=== PATIENT | female | born 1975 | race Two or more races ===

== ENCOUNTER 2016-07-06 11:01 | Emergency (ER) | payer SELFPAY ==
--- NOTE | 2016-07-06 11:21 | ER Document Report ---
ED Medical Screen (RME) - General Stated Complaint: STOMACH CRAMPING, CHEST PAIN Notes: 41 yo female c/o lower abdominal cramping since this morning. unsure if . LMP in May pt not taking BP meds becuase they make her nauseated. denies vaginal discharge or bleeding. TRAVEL OUTSIDE OF THE [place] IN LAST 30 DAYS: No - Related Data Allergies/Adverse Reactions: amoxicillin [Amoxicillin] Allergy (Verified 07/06/16 11:18) Tachycardia Past Medical History - Social History Family history: Reviewed & Not Pertinent - Past Medical History Cardiac Medical History: Reports: Hx Hypercholesterolemia Pulmonary Medical History: Reports: Hx Asthma, Hx Bronchitis, Hx Pneumonia Endocrine Medical History: Reports: Hx Diabetes Mellitus Type 2 Musculoskeltal Medical History: Reports Hx Musculoskeletal Trauma Past Surgical History: Reports: Hx Gynecologic Surgery - D&C, Hx Tubal Ligation - Immunizations Immunizations up to date: Yes Hx Diphtheria, Pertussis, Tetanus Vaccination: Yes Physical Exam - Vital signs Vitals: Temp Pulse Resp BP Pulse Ox 98.0 F 83 20 130/70 H 98 07/06/16 11:15 07/06/16 11:15 07/06/16 11:15 07/06/16 11:15 07/06/16 11:15 Course - Vital Signs Vital signs: Temp Pulse Resp BP Pulse Ox 98.0 F 83 20 130/70 H 98 07/06/16 11:15 07/06/16 11:15 07/06/16 11:15 07/06/16 11:15 07/06/16 11:15
[2016-07-06 11:50] LABS: ABSOLUTE EOSINOPHILS # (AUTO) 0.2 10^3/uL (0.0-0.6); ABSOLUTE LYMPHOCYTES (AUTO) 1.2 10^3/uL (0.5-4.7); ABSOLUTE MONOCYTES (AUTO) 0.4 10^3/uL (0.1-1.4); ABSOLUTE NEUT (AUTO) 5.3 10^3/uL (1.7-8.2); BASOPHILS % (AUTO) 0.3 % (0-2); EOSINOPHILS % (AUTO) 2.6 % (0-6); HEMATOCRIT 35.8 % (36.0-47.0); HGB HCT DIFFERENCE 0.2; LYMPHOCYTES % (AUTO) 17.3 % (13-45); MEAN CORPUSCULAR HGB CONC 33.5 g/dL (32.0-36.0); MEAN CORPUSCULAR VOLUME 86 fl (80-97); MONOCYTES % (AUTO) 5.8 % (3-13); RED BLOOD COUNT 4.15 10^6/uL (3.72-5.28); RED CELL DISTRIBUTION WIDTH 14.2 % (11.5-14.0); WHITE BLOOD COUNT 7.2 10^3/uL (4.0-10.5)
[2016-07-06 12:18] LABS: ALANINE AMINOTRANSFERASE 18 U/L (9-52); ALBUMIN 3.9 g/dL (3.5-5.0); ALKALINE PHOSPHATASE 85 U/L (38-126); ANION GAP 9 (5-19); ASPARTATE AMINO TRANSFERASE 24 U/L (14-36); BILIRUBIN,TOTAL 0.6 mg/dL (0.2-1.3); BLOOD UREA NITROGEN 12 mg/dL (7-20); CALCIUM 9.7 mg/dL (8.4-10.2); CARBON DIOXIDE 25 mmol/L (22-30); CHLORIDE 106 mmol/L (98-107); CREATINE KINASE 48 U/L (30-135); CREATININE RESULT 0.61 mg/dL (0.52-1.25); GLUCOSE 140 mg/dL (75-110); SODIUM 140.3 mmol/L (137-145); TOTAL PROTEIN 6.8 g/dL (6.3-8.2)
[2016-07-06 12:30] LABS: CREATINE KINASE MB < 0.22 ng/mL (<4.55); TROPONIN I < 0.012 ng/mL
--- NOTE | 2016-07-06 12:40 | ER Document Report ---
ED GI/ - General Time seen by provider: 13:12 Mode of Arrival: Ambulatory Information source: Patient TRAVEL OUTSIDE OF THE [place] IN LAST 30 DAYS: No - HPI Patient complains to provider of: Abdominal pain. No: Vaginal bleeding Onset: Other - see HPI note Vaginal bleeding (Compared to normal period): None Associated symptoms: Nausea. denies: Diarrhea <STEVEN NOE - Last Filed: 07/06/16 13:34> <MARY RICE - Last Filed: 07/06/16 16:05> - General Chief Complaint: Abdominal Pain Stated Complaint: STOMACH CRAMPING, CHEST PAIN Notes: Patient is a 41 year old female presenting to the emergency department for abdominal pain and nausea. Patient states that these symptoms started around 04: 00 this morning. Patient states that her abdominal pain is in her lower abdomen. Patient denies any vaginal discharge, vaginal bleeding, or diarrhea. Patient has a history of type 2 diabetes mellitus, hypertension, hypercholesterolemia, and sinus arrhythmia. Patient states she stopped taking her metoprolol and her cholesterol medication because they were making her nauseous. Patient states she is unsure if she is but she had a tubal ligation in 2005. Patient states she sees Dr. Rubina zuñiga per year and her PCP is with [facility]. (STEVEN NOE) - Related Data Allergies/Adverse Reactions: amoxicillin [Amoxicillin] Allergy (Verified 07/06/16 11:18) Tachycardia Past Medical History - General Information source: Patient - Social History Smoking Status: Never Smoker Cigarette use (# per day): No Chew tobacco use (# tins/day): No Frequency of alcohol use: None Drug Abuse: None Family History: Arthritis, CAD, CVA, DM, Hyperlipidemia, Hypertension, Malignancy Patient has suicidal ideation: No Patient has homicidal ideation: No - Past Medical History Cardiac Medical History: Reports: Hx Hypercholesterolemia Pulmonary Medical History: Reports: Hx Asthma, Hx Bronchitis, Hx Pneumonia Endocrine Medical History: Reports: Hx Diabetes Mellitus Type 2 Musculoskeltal Medical History: Reports Hx Musculoskeletal Trauma Past Surgical History: Reports: Hx Gynecologic Surgery - D&C, Hx Tubal Ligation - 2005 - Immunizations Immunizations up to date: Yes Hx Diphtheria, Pertussis, Tetanus Vaccination: Yes <STEVEN NOE - Last Filed: 07/06/16 13:34> Review of Systems - Review of Systems Constitutional: No symptoms reported EENT: No symptoms reported Cardiovascular: No symptoms reported Respiratory: No symptoms reported Gastrointestinal: See HPI, Abdominal pain, Nausea. denies: Diarrhea, Vomiting Genitourinary: No symptoms reported Female Genitourinary: No symptoms reported Musculoskeletal: No symptoms reported Skin: No symptoms reported Hematologic/Lymphatic: No symptoms reported Neurological/Psychological: No symptoms reported -: Yes All other systems reviewed and negative <STEVEN NOE - Last Filed: 07/06/16 13:34> Physical Exam - Vital signs Interpretation: Normal - General General appearance: Appears well, Alert In distress: Mild - HEENT Head: Normocephalic, Atraumatic Eyes: Normal Pupils: PERRL Mucous membranes: Moist - Respiratory Respiratory status: No respiratory distress Chest status: Nontender Breath sounds: Normal Chest palpation: Normal - Cardiovascular Rhythm: Regular Heart sounds: Normal auscultation Murmur: No - Abdominal Inspection: Morbidly Obese Distension: No distension Bowel sounds: Normal Tenderness: Tender - Diffuse abdominal tenderness throughout Organomegaly: No organomegaly - Back Back: Normal, Nontender - Extremities General upper extremity: Normal inspection, Normal ROM, Normal strength General lower extremity: Normal inspection, Normal ROM, Normal strength - Neurological Neuro grossly intact: Yes Cognition: Normal Orientation: AAOx4 Patrick Coma Scale Eye Opening: Spontaneous Patrick Coma Scale Verbal: Oriented Patrick Coma Scale Motor: Obeys Commands [place] Coma Scale Total: 15 Speech: Normal - Psychological Associated symptoms: Normal affect, Normal mood - Skin Skin Temperature: Warm Skin Moisture: Dry <STEVEN NOE - Last Filed: 07/06/16 13:34> <MARY RICE - Last Filed: 07/06/16 16:05> - Vital signs Vitals: Temp Pulse Resp BP Pulse Ox 98.0 F 83 20 130/70 H 98 07/06/16 11:15 07/06/16 11:15 07/06/16 11:15 07/06/16 11:15 07/06/16 11:15 Course - Laboratory Result Diagrams: 07/06/16 11:25 07/06/16 11:25 <STEVEN NOE - Last Filed: 07/06/16 13:34> - Laboratory Result Diagrams: 07/06/16 11:25 07/06/16 11:25 - Diagnostic Test Radiology reviewed: Image reviewed, Reports reviewed - Nonspecific abdomen with a lot of stool. <MARY RICE - Last Filed: 07/06/16 16:05> - Vital Signs Vital signs: Temp Pulse Resp BP Pulse Ox 98.0 F 83 20 130/70 H 98 07/06/16 11:15 07/06/16 11:15 07/06/16 11:15 07/06/16 11:15 07/06/16 11:15 - Laboratory Laboratory results interpreted by me: 07/06/16 07/06/16 07/06/16 11:25 11:25 13:40 Hct 35.8 L RDW 14.2 H Glucose 140 H Urine Nitrite POSITIVE H Ur Leukocyte Esterase TRACE H Discharge <STEVEN NOE - Last Filed: 07/06/16 13:34> <MARY RICE - Last Filed: 07/06/16 16:05> - Discharge Clinical Impression: Abdominal bloating Abdominal pain Qualifiers: Abdominal location: lower abdomen, unspecified Qualified Code(s): R10.30 - Lower abdominal pain, unspecified Constipation Qualifiers: Constipation type: unspecified constipation type Qualified Code(s): K59.00 - Constipation, unspecified Condition: Stable Disposition: HOME, SELF-CARE Additional Instructions: Urinary Tract Infection: Your evaluation indicates that you have a urinary tract infection. This is due to germs growing in the bladder. This is a common problem. This infection usually responds quickly to antibiotics. Your antibiotic should be taken exactly as prescribed. Drink plenty of fluids -- three to four quarts a day. Occasionally, a bladder anesthetic will be prescribed to help stop the feeling of urgency until the antibiotic has a chance to clear the infection. This may cause your urine to be dark orange. Certain urine infections require a culture. If the doctor obtained a culture, the results will be back in two days. You should call to see if a change in treatment is needed. A repeat urinalysis after you finish treatment is often recommended. The physician will let you know if further testing is required. Call the doctor if you develop fever, chills, flank pain, inability to urinate, or blood in the urine. TAKE THE ANTIBIOTICS PRESCRIBED. DRINK PLENTY OF FLUIDS. TAKE MiraLax EVERY DAY UNTIL THE BOWELS ARE MOVING GOOD. FOLLOW UP WITH YOUR DOCTOR IF NOT IMPROVING. Prescriptions: Sulfamethoxazole/Trimethoprim [Septra-Ds 800-160 mg Tablet] 1 tab PO NOW #10 tablet Scribe Attestation: 07/06/16 16:05 I personally performed the services described in the documentation, reviewed and edited the documentation which was dictated to the scribe in my presence, and it accurately records my words and actions. (MARY RICE) Scribe Documentation - Scribe Written by Scribe:: Steven Noe 07/06/16 14:00 acting as scribe for :: Josee <STEVEN NOE - Last Filed: 07/06/16 13:34>
[2016-07-06 15:45] LABS: APPEARANCE,URINE SLIGHTLY-CLOUDY; BILIRUBIN,URINE NEGATIVE (NEGATIVE); GLUCOSE, URINE NEGATIVE (NEGATIVE); KETONES,URINE NEGATIVE (NEGATIVE); LEUKOCYTE ESTERASE,URINE TRACE (NEGATIVE); NITRITE,URINE POSITIVE (NEGATIVE); PROTEIN,URINE NEGATIVE (NEGATIVE); URINE SPECIFIC GRAVITY 1.024; UROBILINOGEN,URINE NEGATIVE mg/dL (<2.0)
[2016-07-06] MEDS ORDERED: SULFAMETHOXAZOLE/TRIMETHOPRIM 800-160 MG TABLET PO ONE (16:05)
[2016-07-06] MEDS ORDERED: PHENAZOPYRIDINE HCL 200 MG TABLET PO ONE (16:05)
[2016-07-06 16:24] VITALS: BP 116/74
--- NOTE | 2016-07-06 20:36 | EKG REPORT ---
SEVERITY:- ABNORMAL ECG - SINUS RHYTHM LEFT ANTERIOR FASCICULAR BLOCK CONSIDER ANTERIOR INFARCT BORDERLINE T ABNORMALITIES, INFERIOR LEADS : Confirmed by: Rupesh Herring MD 06-Jul-2016 20:35:11
== END 2016-07-06 16:24 | disposition home or self-care (01) ==
LOC: ER 11:01
DX: R14.0 Abdominal distension (gaseous) (principal); R10.30 Lower abdominal pain, unspecified; R10.9 Unspecified abdominal pain; R07.9 Chest pain, unspecified; R11.0 Nausea; E11.9 Type 2 diabetes mellitus without complications; Z79.899 Other long term (current) drug therapy
CPT/HCPCS: 36415; 71020; 74020; 80053; 81001; 82550; 82553; 84484; 84703; 85025; 87086; 87088; 87186; 93005; 93010; 99284

== ENCOUNTER 2016-10-14 14:10 | Emergency (ER) | payer SELFPAY ==
--- NOTE | 2016-10-14 14:34 | ER Document Report ---
ED Medical Screen (RME) - General Chief Complaint: Tremor Stated Complaint: WEAKNESS Time Seen by Provider: 10/14/16 14:26 Notes: 41-year-old female patient with a history of diabetes and hypertension who states she has a cardiac history reports she was at a restaurant about noon today and began to feel very shaky all over. She felt like she could not talk right and is concerned she is having a stroke. She holds both her hands out to show them shaking and tremorous. There are no motor deficits or cognitive deficits or speech Tao noted at this point. Has not checked her blood sugar. She does report she drank a lot of tea after the symptoms started. I have greeted and performed a rapid initial assessment of this patient. A comprehensive ED assessment and evaluation of the patient, analysis of test results and completion of the medical decision making process will be conducted by additional ED providers. TRAVEL OUTSIDE OF THE [place] IN LAST 30 DAYS: No - Related Data Allergies/Adverse Reactions: amoxicillin [Amoxicillin] Allergy (Verified 10/14/16 14:13) Tachycardia Past Medical History - Social History Family history: Reviewed & Not Pertinent - Past Medical History Cardiac Medical History: Reports: Hx Hypercholesterolemia Pulmonary Medical History: Reports: Hx Asthma, Hx Bronchitis, Hx Pneumonia Endocrine Medical History: Reports: Hx Diabetes Mellitus Type 2 Renal/ Medical History: Denies: Hx Peritoneal Dialysis Musculoskeltal Medical History: Reports Hx Musculoskeletal Trauma Past Surgical History: Reports: Hx Gynecologic Surgery - D&C, Hx Tubal Ligation - 2005 - Immunizations Immunizations up to date: Yes Hx Diphtheria, Pertussis, Tetanus Vaccination: Yes Physical Exam - Vital signs Vitals: Temp Pulse Resp BP Pulse Ox 97.9 F 111 H 16 148/95 H 98 10/14/16 14:14 10/14/16 14:14 10/14/16 14:14 10/14/16 14:14 10/14/16 14:14 Course - Vital Signs Vital signs: Temp Pulse Resp BP Pulse Ox 97.9 F 111 H 16 148/95 H 98 10/14/16 14:14 10/14/16 14:14 10/14/16 14:14 10/14/16 14:14 10/14/16 14:14
[2016-10-14] MEDS ORDERED: ONDANSETRON 4 MG TAB.RAPDIS PO ONE (14:38)
[2016-10-14 15:16] LABS: ABSOLUTE LYMPHOCYTES (AUTO) 1.4 10^3/uL (0.5-4.7); ABSOLUTE MONOCYTES (AUTO) 0.4 10^3/uL (0.1-1.4); ABSOLUTE NEUT (AUTO) 7.2 10^3/uL (1.7-8.2); BASOPHILS % (AUTO) 0.5 % (0-2); EOSINOPHILS % (AUTO) 0.4 % (0-6); HEMATOCRIT 38.8 % (36.0-47.0); HEMOGLOBIN 12.9 g/dL (12.0-15.5); HGB HCT DIFFERENCE -0.1; LYMPHOCYTES % (AUTO) 15.1 % (13-45); MEAN CORPUSCULAR HEMOGLOBIN 28.3 pg (27.0-33.4); MEAN CORPUSCULAR HGB CONC 33.2 g/dL (32.0-36.0); MEAN CORPUSCULAR VOLUME 85 fl (80-97); MONOCYTES % (AUTO) 4.8 % (3-13); RED BLOOD COUNT 4.55 10^6/uL (3.72-5.28); RED CELL DISTRIBUTION WIDTH 14.7 % (11.5-14.0); SEGMENTED NEUTROPHILS % (AUTO) 79.2 % (42-78); WHITE BLOOD COUNT 9.1 10^3/uL (4.0-10.5)
[2016-10-14 15:37] LABS: ALANINE AMINOTRANSFERASE 20 U/L (9-52); ALBUMIN 4.5 g/dL (3.5-5.0); ALKALINE PHOSPHATASE 115 U/L (38-126); ANION GAP 18 (5-19); ASPARTATE AMINO TRANSFERASE 43 U/L (14-36); BILIRUBIN,DIRECT 0.3 mg/dL (0.0-0.4); BILIRUBIN,TOTAL 0.5 mg/dL (0.2-1.3); BLOOD UREA NITROGEN 7 mg/dL (7-20); CALCIUM 8.7 mg/dL (8.4-10.2); CARBON DIOXIDE 20 mmol/L (22-30); CHLORIDE 98 mmol/L (98-107); CREATINE KINASE 138 U/L (30-135); CREATININE RESULT 0.59 mg/dL (0.52-1.25); GLUCOSE 138 mg/dL (75-110); POTASSIUM 4.2 mmol/L (3.6-5.0); SODIUM 135.7 mmol/L (137-145); TOTAL PROTEIN 7.9 g/dL (6.3-8.2)
[2016-10-14 15:47] LABS: CREATINE KINASE MB 0.96 ng/mL (<4.55)
[2016-10-14 15:48] LABS: TROPONIN I < 0.012 ng/mL
[2016-10-14] MEDS ORDERED: LORAZEPAM 1 MG TABLET PO ONE (16:35)
--- NOTE | 2016-10-14 18:10 | ER Document Report ---
ED Neuro Symptoms/Deficit - General Chief Complaint: Tremor Stated Complaint: WEAKNESS Time Seen by Provider: 10/14/16 14:26 Mode of Arrival: Ambulatory Information source: Patient Notes: Patient is a 41-year-old female with a history of anxiety who presents to the ER because she was at a restaurant prior to arrival when she "started feeling shaky and could not talk right." Patient is concerned that she is having a stroke. She denies any other symptoms such as headache, blurry vision, weakness on one side or the other, numbness or tingling anywhere, history of stroke or heart attack. Patient does not take any medications for any reason. She states that she is supposed to take medications for blood pressure but does not do so. She has not seen a primary care provider in a long time. Denies any cough, dysuria, recent injury. TRAVEL OUTSIDE OF THE [place] IN LAST 30 DAYS: No - Related Data Allergies/Adverse Reactions: amoxicillin [Amoxicillin] Allergy (Verified 10/14/16 14:13) Tachycardia Past Medical History - General Information source: Patient - Social History Smoking Status: Never Smoker Chew tobacco use (# tins/day): No Frequency of alcohol use: None Drug Abuse: None Family History: Arthritis, CAD, CVA, DM, Hyperlipidemia, Hypertension, Malignancy Patient has suicidal ideation: No Patient has homicidal ideation: No - Past Medical History Cardiac Medical History: Reports: Hx Hypercholesterolemia Pulmonary Medical History: Reports: Hx Asthma, Hx Bronchitis, Hx Pneumonia Endocrine Medical History: Reports: Hx Diabetes Mellitus Type 2 Renal/ Medical History: Denies: Hx Peritoneal Dialysis Musculoskeltal Medical History: Reports Hx Musculoskeletal Trauma Past Surgical History: Reports: Hx Gynecologic Surgery - D&C, Hx Tubal Ligation - 2005 - Immunizations Immunizations up to date: Yes Hx Diphtheria, Pertussis, Tetanus Vaccination: Yes Review of Systems - Review of Systems Constitutional: No symptoms reported EENT: No symptoms reported Cardiovascular: No symptoms reported Respiratory: No symptoms reported Gastrointestinal: No symptoms reported Genitourinary: No symptoms reported Female Genitourinary: No symptoms reported Musculoskeletal: No symptoms reported Skin: No symptoms reported Hematologic/Lymphatic: No symptoms reported Neurological/Psychological: See HPI Physical Exam - Vital signs Vitals: Temp Pulse Resp BP Pulse Ox 97.9 F 111 H 16 148/95 H 98 10/14/16 14:14 10/14/16 14:14 10/14/16 14:14 10/14/16 14:14 10/14/16 14:14 - Notes Notes: PHYSICAL EXAMINATION: GENERAL: anxious, in no acute distress. HEAD: Atraumatic, normocephalic. EYES: Pupils equal round and reactive to light, extraocular movements intact, sclera anicteric, conjunctiva are normal. ENT: ear canals without erythema or foreign body, TMs pearly nguyen with good bony landmarks, nares patent, oropharynx clear without exudates. Moist mucous membranes. airway patent NECK: Normal range of motion, supple without lymphadenopathy LUNGS: CTAB and equal. No wheezes rales or rhonchi. HEART: Regular rate and rhythm without murmurs ABDOMEN: Soft, no tenderness. No guarding, no rebound EXTREMITIES: Normal range of motion, no pitting edema. No cyanosis. PHYSICAL EXAMINATION: NEUROLOGICAL: generalized shaking, worse when I start examining her or move closer to her, Cranial nerves grossly intact. Normal sensory/motor exams. Good and equal strength bilaterally, Kernig and Brudzinski's signs negative, Romberg' s test normal, normal heel to eric testing PSYCH: anxious SKIN: Warm, Dry, normal turgor, no rashes or lesions noted Course - Re-evaluation Re-evalutation: 11/03/16 13:50 Shawn is unremarkable today. Patient seems very anxious and does calm down, symptoms resolved with hydroxyzine. At this time patient has no neuro deficits and no signs of stroke. Will discharge with atarax rx for anxiety. 11/03/16 13:51 - Vital Signs Vital signs: Temp Pulse Resp BP Pulse Ox 99.0 F 116 H 20 152/73 H 97 10/14/16 18:17 10/14/16 18:17 10/14/16 18:17 10/14/16 18:17 10/14/16 18:17 - Laboratory Result Diagrams: 10/14/16 15:00 10/14/16 15:00 Laboratory results interpreted by me: 10/14/16 10/14/16 10/14/16 14:40 15:00 15:00 RDW 14.7 H Seg Neutrophils % 79.2 H Sodium 135.7 L Carbon Dioxide 20 L Glucose 138 H POC Glucose 127 H AST 43 H Creatine Kinase 138 H Discharge - Discharge Clinical Impression: Anxiety, Shaking Condition: Stable Disposition: HOME, SELF-CARE Additional Instructions: Return immediately for any new or worsening symptoms. Follow up with primary care provider, call tomorrow to make followup appointment. Prescriptions: Hydroxyzine Pamoate [Vistaril 50 mg Capsule] 50 mg PO Q8 PRN #15 capsule PRN Reason: Forms: Return to Work
[2016-10-14 18:19] VITALS: BP 152/73
--- NOTE | 2016-10-17 09:48 | EKG REPORT ---
SEVERITY:- BORDERLINE ECG - SINUS TACHYCARDIA LEFT AXIS DEVIATION BORDERLINE T ABNORMALITIES, INFERIOR LEADS : Confirmed by: Casi Colindres 17-Oct-2016 09:47:26
== END 2016-10-14 18:19 | disposition home or self-care (01) ==
LOC: ER 14:10
DX: R25.1 Tremor, unspecified (principal); R53.1 Weakness
CPT/HCPCS: 93005; 99285; 36415; 82553; 82962; 82550; 84443; 85025; 80053; 84484; 93010; S0119

== ENCOUNTER 2018-09-20 17:47 | Emergency (ER) | payer SELFPAY ==
[2018-09-20 18:06] VITALS: BP 123/70
--- NOTE | 2018-09-20 19:14 | ER Document Report ---
ED Medical Screen (RME) - General Chief Complaint: Palpitations Stated Complaint: FAST HEART RATE Time Seen by Provider: 09/20/18 19:07 Primary Care Provider: ZAINA DE LA ROSA MD [Primary Care Provider] - Follow up as needed Mode of Arrival: Ambulatory Information source: Patient Notes: Patient is a 43-year-old female presented to the emergency department after having episode of palpitations while she was at work. Patient also reports shortness of breath and that she felt very dizzy and almost passed out. Patient reports she is supposed to take metoprolol and had not taken a dose since Monday. Patient reports immediately when this episode started she took her metoprolol which resolved all of her symptoms. Patient currently denies any chest pain but does report mild shortness of breath. She states she sees a manager retirement and recently had a Holter monitor on, she states there was no acute abnormality found during this time. Exam: Heart sounds S1-S2 present with no ectopy noted. Lung sounds clear and equal bilaterally. Skin warm and dry. I have greeted and performed a rapid initial assessment of this patient. A comprehensive ED assessment and evaluation of the patient, analysis of test results and completion of the medical decision making process will be conducted by additional ED providers. Dictation of this chart was performed using Immediately software; therefore, there may be some unintended grammatical errors. TRAVEL OUTSIDE OF THE [place] IN LAST 30 DAYS: No - Related Data Allergies/Adverse Reactions: amoxicillin [Amoxicillin] Allergy (Verified 09/20/18 17:49) Tachycardia Past Medical History - Social History Family history: Reviewed & Not Pertinent - Past Medical History Cardiac Medical History: Reports: Hx Hypercholesterolemia Pulmonary Medical History: Reports: Hx Asthma, Hx Bronchitis, Hx Pneumonia Endocrine Medical History: Reports: Hx Diabetes Mellitus Type 2 Renal/ Medical History: Denies: Hx Peritoneal Dialysis Musculoskeltal Medical History: Reports Hx Musculoskeletal Trauma, Denies Hx Systemic Lupus Erythematosus Past Surgical History: Reports: Hx Gynecologic Surgery - D&C, Hx Tubal Ligation - Immunizations Immunizations up to date: Yes Hx Diphtheria, Pertussis, Tetanus Vaccination: Yes Physical Exam - Vital signs Vitals: Temp Pulse Resp BP Pulse Ox 98.6 F 89 18 123/70 99 09/20/18 18:05 09/20/18 18:05 09/20/18 18:05 09/20/18 18:05 09/20/18 18:05 Course - Vital Signs Vital signs: Temp Pulse Resp BP Pulse Ox 98.6 F 89 18 123/70 99 09/20/18 18:05 09/20/18 18:05 09/20/18 18:05 09/20/18 18:05 09/20/18 18:05 Doctor's Discharge - Discharge Referrals: ZAINA DE LA ROSA MD [Primary Care Provider] - Follow up as needed
--- NOTE | 2018-09-20 19:43 | RADIOLOGY REPORT (SQ) ---
EXAM DESCRIPTION: CHEST SINGLE VIEW COMPLETED DATE/TIME: 09/20/2018 7:29 pm REASON FOR STUDY: shortness of breath COMPARISON: 07/06/2016 EXAM PARAMETERS: NUMBER OF VIEWS: One view. TECHNIQUE: Single frontal radiographic view of the chest acquired. RADIATION DOSE: NA LIMITATIONS: None. FINDINGS: LUNGS AND PLEURA: No opacities, masses or pneumothorax. No pleural effusion. MEDIASTINUM AND HILAR STRUCTURES: No masses. Contour normal. HEART AND VASCULAR STRUCTURES: Heart normal in size. Normal vasculature. BONES: No acute findings. HARDWARE: None in the chest. OTHER: No other significant finding. IMPRESSION: NO ACUTE RADIOGRAPHIC FINDING IN THE CHEST. TECHNICAL DOCUMENTATION: JOB ID: [id number] [employer]- All Rights Reserved Reading location - IP/workstation name: [email or web address]
--- NOTE | 2018-09-20 20:05 | EKG REPORT ---
SEVERITY:- BORDERLINE ECG - SINUS RHYTHM LEFT AXIS DEVIATION CONSIDER ANTERIOR INFARCT BORDERLINE T ABNORMALITIES, INFERIOR LEADS : Confirmed by: Rupesh Herring MD 20-Sep-2018 20:05:08
[2018-09-20 20:26] LABS: ABSOLUTE EOSINOPHILS # (AUTO) 0.2 10^3/uL (0.0-0.6); ABSOLUTE LYMPHOCYTES (AUTO) 1.6 10^3/uL (0.5-4.7); ABSOLUTE MONOCYTES (AUTO) 0.6 10^3/uL (0.1-1.4); ABSOLUTE NEUT (AUTO) 6.7 10^3/uL (1.7-8.2); BASOPHILS % (AUTO) 0.1 % (0-2); EOSINOPHILS % (AUTO) 2.6 % (0-6); HEMATOCRIT 33.4 % (36.0-47.0); HEMOGLOBIN 10.9 g/dL (12.0-15.5); LYMPHOCYTES % (AUTO) 17.6 % (13-45); MEAN CORPUSCULAR HEMOGLOBIN 26.3 pg (27.0-33.4); MEAN CORPUSCULAR HGB CONC 32.6 g/dL (32.0-36.0); MEAN CORPUSCULAR VOLUME 81 fl (80-97); MONOCYTES % (AUTO) 6.6 % (3-13); PLATELET COUNT 269 10^3/uL (150-450); RED BLOOD COUNT 4.15 10^6/uL (3.72-5.28); RED CELL DISTRIBUTION WIDTH 16.6 % (11.5-14.0); SEGMENTED NEUTROPHILS % (AUTO) 73.1 % (42-78); TOTAL CELLS COUNTED % (AUTO) 100 %; WHITE BLOOD COUNT 9.2 10^3/uL (4.0-10.5)
[2018-09-20 20:44] LABS: ALANINE AMINOTRANSFERASE 18 U/L (9-52); ALBUMIN 3.8 g/dL (3.5-5.0); ALKALINE PHOSPHATASE 85 U/L (38-126); ANION GAP 11 (5-19); ASPARTATE AMINO TRANSFERASE 34 U/L (14-36); BILIRUBIN,DIRECT 0.2 mg/dL (0.0-0.4); BILIRUBIN,TOTAL 0.2 mg/dL (0.2-1.3); BLOOD UREA NITROGEN 9 mg/dL (7-20); CALCIUM 9.1 mg/dL (8.4-10.2); CARBON DIOXIDE 22 mmol/L (22-30); CHLORIDE 107 mmol/L (98-107); GLUCOSE 139 mg/dL (75-110); POTASSIUM 4.5 mmol/L (3.6-5.0); SODIUM 139.8 mmol/L (137-145); TOTAL PROTEIN 6.4 g/dL (6.3-8.2)
== END 2018-09-21 00:43 | disposition left against medical advice (07) ==
LOC: ER 17:47
DX: R00.2 Palpitations (principal); T44.7X6A Underdosing of beta-adrenoreceptor antagonists, initial encounter; Z91.14 Patient's other noncompliance with medication regimen; J45.909 Unspecified asthma, uncomplicated; E11.9 Type 2 diabetes mellitus without complications; R06.02 Shortness of breath; R42 Dizziness and giddiness; Z88.0 Allergy status to penicillin; Z53.20 Procedure and treatment not carried out because of patient's decision for unspecified reasons
CPT/HCPCS: 36415; 71045; 80053; 84484; 85025; 93005; 93010; 99281

== ENCOUNTER 2019-03-08 19:09 | Emergency (ER) | payer SELFPAY ==
[2019-03-08 19:22] VITALS: BP 138/55
--- NOTE | 2019-03-08 19:36 | ER Document Report ---
ED Medical Screen (RME) - General Chief Complaint: Cough Stated Complaint: COUGH Time Seen by Provider: 03/08/19 19:30 Mode of Arrival: Ambulatory Information source: Patient Notes: 44-year-old female presented to ED for a cough nausea and vomiting for 3 weeks and now she is also only started to get a head cold. States she got a flu shot 3 weeks ago. She states she has had some hot and cold flashes. States her last menstrual cycle was 24 February 2019. She denies any pain at this time. She states she is urinating more frequently and has some irritation with urination. Patient denies smoking or use of illicit drug but states she does drink about once a week. She has a history of high blood pressure, diabetes elevated cholesterol. I have greeted and performed a rapid initial assessment of this patient. A comprehensive ED assessment and evaluation of the patient, analysis of test results and completion of medical decision making process will be conducted by an additional ED providers. TRAVEL OUTSIDE OF THE [place] IN LAST 30 DAYS: No - Related Data Allergies/Adverse Reactions: amoxicillin [Amoxicillin] Allergy (Verified 09/20/18 17:49) Tachycardia Past Medical History - Social History Family history: Reviewed & Not Pertinent - Past Medical History Cardiac Medical History: Reports: Hx Hypercholesterolemia Pulmonary Medical History: Reports: Hx Asthma, Hx Bronchitis, Hx Pneumonia Endocrine Medical History: Reports: Hx Diabetes Mellitus Type 2 Renal/ Medical History: Denies: Hx Peritoneal Dialysis Musculoskeltal Medical History: Reports Hx Musculoskeletal Trauma, Denies Hx Systemic Lupus Erythematosus Past Surgical History: Reports: Hx Gynecologic Surgery - D&C, Hx Tubal Ligation - Immunizations Immunizations up to date: Yes Hx Diphtheria, Pertussis, Tetanus Vaccination: Yes Physical Exam - Vital signs Vitals: Temp Pulse Resp BP Pulse Ox 98.4 F 114 H 15 138/55 H 100 03/08/19 19:19 03/08/19 19:19 03/08/19 19:19 03/08/19 19:19 03/08/19 19:19 Course - Vital Signs Vital signs: Temp Pulse Resp BP Pulse Ox 98.4 F 114 H 15 138/55 H 100 03/08/19 19:19 03/08/19 19:19 03/08/19 19:19 03/08/19 19:19 03/08/19 19:19
[2019-03-08 21:01] LABS: APPEARANCE,URINE CLOUDY; BILIRUBIN,URINE NEGATIVE (NEGATIVE); COLOR,URINE YELLOW; GLUCOSE, URINE >=500 mg/dL (NEGATIVE); KETONES,URINE NEGATIVE (NEGATIVE); PROTEIN,URINE 30 mg/dL (NEGATIVE); URINE SPECIFIC GRAVITY 1.022; UROBILINOGEN,URINE NEGATIVE mg/dL (<2.0)
[2019-03-08 21:04] LABS: ABSOLUTE EOSINOPHILS # (AUTO) 0.2 10^3/uL (0.0-0.6); ABSOLUTE LYMPHOCYTES (AUTO) 1.4 10^3/uL (0.5-4.7); ABSOLUTE MONOCYTES (AUTO) 0.4 10^3/uL (0.1-1.4); ABSOLUTE NEUT (AUTO) 8.1 10^3/uL (1.7-8.2); BASOPHILS % (AUTO) 0.3 % (0-2); EOSINOPHILS % (AUTO) 1.9 % (0-6); HEMATOCRIT 37.1 % (36.0-47.0); HEMOGLOBIN 12.1 g/dL (12.0-15.5); LYMPHOCYTES % (AUTO) 14.1 % (13-45); MEAN CORPUSCULAR HEMOGLOBIN 26.6 pg (27.0-33.4); MEAN CORPUSCULAR HGB CONC 32.7 g/dL (32.0-36.0); MEAN CORPUSCULAR VOLUME 81 fl (80-97); MONOCYTES % (AUTO) 4.3 % (3-13); PLATELET COUNT 313 10^3/uL (150-450); RED BLOOD COUNT 4.56 10^6/uL (3.72-5.28); RED CELL DISTRIBUTION WIDTH 16.5 % (11.5-14.0); SEGMENTED NEUTROPHILS % (AUTO) 79.4 % (42-78); TOTAL CELLS COUNTED % (AUTO) 100 %; WHITE BLOOD COUNT 10.2 10^3/uL (4.0-10.5)
[2019-03-08 21:27] LABS: ALBUMIN 4.3 g/dL (3.5-5.0); ALKALINE PHOSPHATASE 87 U/L (38-126); ANION GAP 9 (5-19); ASPARTATE AMINO TRANSFERASE 34 U/L (14-36); BILIRUBIN,DIRECT 0.2 mg/dL (0.0-0.4); BILIRUBIN,TOTAL 0.3 mg/dL (0.2-1.3); BLOOD UREA NITROGEN 12 mg/dL (7-20); CALCIUM 9.2 mg/dL (8.4-10.2); CARBON DIOXIDE 27 mmol/L (22-30); CHLORIDE 103 mmol/L (98-107); GLUCOSE 108 mg/dL (75-110); POTASSIUM 4.4 mmol/L (3.6-5.0); TOTAL PROTEIN 7.5 g/dL (6.3-8.2)
== END 2019-03-09 01:00 | disposition left against medical advice (07) ==
LOC: ER 19:09
DX: R05 Cough (principal); R11.2 Nausea with vomiting, unspecified; R35.0 Frequency of micturition; I10 Essential (primary) hypertension; E11.9 Type 2 diabetes mellitus without complications; J45.909 Unspecified asthma, uncomplicated; Z88.0 Allergy status to penicillin; Z53.20 Procedure and treatment not carried out because of patient's decision for unspecified reasons
CPT/HCPCS: 36415; 80053; 81001; 84703; 85025; 87086; 87088; 87186; 99281